=== PATIENT | female | born 1980 | race Two or more races ===

== ENCOUNTER 2023-11-08 14:13 | Outpatient (RCR) | payer BC, SELFPAY | END 2023-11-08 23:59 | disposition home or self-care (01) | LOC: RPT 14:13 | PROVIDERS: ATTENDING PHYSICIAN Physician Assistant Medical | DX: M25.512 Pain in left shoulder (principal); Z73.6 Limitation of activities due to disability | CPT/HCPCS: 97110; 97112; 97140; 97162 ==

== ENCOUNTER 2023-12-11 16:42 | Outpatient (RCR) | payer BC, SELFPAY | END 2023-12-11 23:59 | disposition home or self-care (01) | LOC: RPT 16:42 | PROVIDERS: ATTENDING PHYSICIAN Physician Assistant Medical | DX: M25.512 Pain in left shoulder (principal) | CPT/HCPCS: 97110; 97112; 97140 ==

== ENCOUNTER → 2023-12-18 11:17 | Outpatient (REF) | payer BC, SELFPAY | LOC: RAD 11:17 | PROVIDERS: ATTENDING PHYSICIAN Physician Assistant Medical | DX: M25.532 Pain in left wrist (principal) | CPT/HCPCS: 73110 ==

== ENCOUNTER → 2024-01-21 16:50 | Outpatient (REF) | payer BC, SELFPAY | LOC: PAVMRI 16:50 | PROVIDERS: ATTENDING PHYSICIAN Physician Assistant Medical | DX: M25.532 Pain in left wrist (principal); G89.29 Other chronic pain; M25.512 Pain in left shoulder | CPT/HCPCS: 73221 ==

== ENCOUNTER → 2024-09-05 15:31 | Outpatient (REF) | payer BC, SELFPAY | LOC: RAD 15:31 | PROVIDERS: ATTENDING PHYSICIAN Physician Assistant Medical | DX: M54.50 Low back pain, unspecified (principal) | CPT/HCPCS: 72110 ==